=== PATIENT | female | born 1985 | race Two or more races ===

== ENCOUNTER → 2016-06-27 | Outpatient (CLI) | payer MEDICAID ==
--- NOTE | 2016-06-28 09:08 | MR ---
MRI Right Knee Without Contrast History: Medial right knee pain. ICD-10 code M25.561. Technique: MRI was performed of the knee using a 1.5 [employer] MRI system. Sagittal, coronal, and axial i maging was obtained with standard imaging sequences. Findings: General: No significant joint effusion. Portillo cyst is seen extending craniocaudal for 3.5 cm. No evid ence for bone contusion or occult fracture. Ligaments and tendons: Anterior cruciate and posterior cruciate ligaments are intact and unremarkable . Medial collateral ligament and pes anserinus are unremarkable. Iliotibial band, fibular collateral ligament, and biceps femoris are unremarkable. Popliteus muscle and tendon are intact. Menisci and cartilage: No evidence for meniscal tear to an articular surface. Mild cartilage signal a bnormality is seen in the medial compartment with mild surface irregularity and minimal thinning in t he central weightbearing portion. Extensor mechanism: Cartilage signal abnormality is seen in the patella. There is mild surface irregu larity and thinning in the medial facet. There is edema in the superolateral aspect of Hoffa fat pad. Quadriceps tendon and patellar tendon are unremarkable. Impression: 1. No evidence for meniscal tear. 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 2. 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 Edema in the superior lateral aspect of Hoffa fat pad that can be seen with excessive lateral pre ssure syndrome.
== END ==
LOC: FIMAGING 12:57
PROVIDERS: ATTEND Physician Assistant
DX: M25.561 Pain in right knee (principal); M22.41 Chondromalacia patellae, right knee; M71.21 Synovial cyst of popliteal space [Baker], right knee

== ENCOUNTER 2017-06-07 05:50 | Observation (INO) | payer MEDICAID ==
--- NOTE | 2017-06-02 17:50 | GHP ---
[f rep st] PREOP HISTORY AND PHYSICAL DATE OF ADMISSION: 06/07/2017 PREOPERATIVE DIAGNOSES: Menometrorrhagia, dysfunctional uterine bleeding, and multiparous, desires p ermanent sterilization. SURGERY TO BE PERFORMED: Total laparoscopic hysterectomy, bilateral salpingectomy. DATE OF SURGERY: 06/07/2017, at 7:15 am. HISTORY OF PRESENT ILLNESS: The patient is a 31-year-old 3, para 3-0-0-3 with a longstanding history of severe heavy and painful menstrual cycles. Currently, her periods are heavy, lasting 10 days. They start and stop with heavy flow. She usually needs to change a tampon and pad every 1 to 1-1/2 hours and has significant dysmenorrhea, making it very difficult for her to go to work or take care of her children. Her cramps are not responsive to Advil, Tylenol, Midol, or other meds. She de nies any midcycle bleeding or postcoital bleeding at this time. She has had an ongoing issue with me nometrorrhagia and dysmenorrhea since the of her 3rd child in 2014. That baby was a secondary to breech. Initially, she had a Mirena IUD placed for contraception, but she had persisten t dysfunctional bleeding with the Mirena and cramps and decided that she wanted that removed. We sta rted on Lo Ovral contraceptive pill. She had ultrasounds which revealed normal anatomy. She continu ed to have pain on different oral contraceptive pills, had breakthrough bleeding, bleeding all of the time, heavy cycles. A pelvic ultrasound in 2014 revealed multiple ovarian cysts and paratubal cysts . In 2014, she underwent a laparoscopy and a left salpingectomy for removal of a hydrosalpinx to att empt to help her pain. The patient initially had relief, but continued to have dysfunctional uterine bleeding and cramps increased. We alternated different oral contraceptive pills, which were unsucce ssful. The patient began discussing surgical management. Initially, because of her young age, she w as reluctant to have endometrial ablation or a hysterectomy; however, this has progressed over the 4 years and is becoming difficult in her life to work and take care of her children. She has 3 ch ildren and has decided that she does not wish to have any more children, and understands that this is a permanent decision. She wants to have definitive therapy with a total laparoscopic hysterectomy. The patient also struggles with PMS and increasing acne as well as bloating during her cycles. She was recently started on spironolactone for hormonal control of acne as well as supplements. The ramo ent has no history of any abnormal Paps. Her last Pap was on April 24, 2017. It was normal, and H PV was negative. She denies history of STDs. PAST OBSTETRICAL HISTORY: In April 2006, she had a viable female, vaginal delivery, 39 weeks. No complications. Baby weighed 6 pounds 4 ounces. April 2013, she had another viable female, 7 glenys nds 9 ounces, vaginal delivery. No complication. In July 2014, she underwent a for br eech for a viable female who weighed 7 pounds 15 ounces. No complications. Those are her only pregn ancies. PAST MEDICAL HISTORY: Significant for depression and acne. No other clinical issues. PAST SURGICAL HISTORY: Oral surgery, x1, and in 2014, laparoscopy, left salpingectomy. ALLERGIES: She has no known drug allergies. CURRENT MEDICATIONS: Include spironolactone 50 mg daily and Dem 150 mg daily. SOCIAL HISTORY: She is not , but she is in a monogamous relationship with the father of her l ast 2 daughters. She denies tobacco, alcohol use, and drug use. Moderate caffeine use. 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 FAMILY HISTORY: Colon cancer in her mother in her 30s. Brother has anemia. Paternal grandmother raygoza s chronic hypertension and diabetes. REVIEW OF SYSTEMS: Negative except for the pertinent SUPERVISOR DYER symptoms as above. SUBJECTIVE: VITAL SIGNS: Today, blood pressure is 94/60. Weight is 144 pounds. GENERAL: She is a well-developed, well-nourished female, in no acute distress. LUNGS: Clear to auscultation bilaterally. HEART: Regular rate and rhythm. No murmur. ABDOMEN: Soft, nontender, nondistended. Normal bowel sounds. PELVIC: Normal external genitalia. Normal parous cervix. Uterus is antever farhad, anteflexed, mobile, nontender. No adnexal masses. Most recent pelvic ultrasound was on April 24, had a normal-size uterus, mild fluid in the cavity. No masses in the endometrium, no fibroids visualized, and ovaries were normal. ASSESSMENT AND PLAN: A 31-year-old, 3, para 3-0-0-3 with a longstanding history of menometro rrhagia, significant dysmenorrhea, resistant to multiple attempts at medical management, desires a to yumiko laparoscopic hysterectomy and bilateral salpingectomy. She was consented for the procedure today . She understands the risks and benefits. The risks including bleeding; infection; damage to organs , ovaries, bowel, bladder, nerves, blood vessels, ureters; need for open procedure; and need for chastity tional procedures. She understood these risks and benefits and agreed to proceed, and she understand s that this is permanent sterilization. /[id number]/MODL
[2017-06-07] MEDS ORDERED: ceFAZolin 2 GM/SWFI 2 GM/20 ML SYR IVP ONE (05:59)
[2017-06-07] MEDS ORDERED: LR 1,000 ML IV ONE (06:00)
[2017-06-07] MEDS ORDERED: LIDOCAINE 1% 2 ML INJ ID PRN (06:00)
[2017-06-07] MEDS ORDERED: MIDAZOLAM 2 MG/2 ML VIAL IVP ONE (07:03)
--- NOTE | 2017-06-07 07:03 | PDANEPAE ---
ANE History of Present Illness jade/bso ANE Past Medical History - Cardiovascular History Hx Hypertension: No Hx Arrhythmias: No Hx Chest Pain: No Hx Coronary Artery / Peripheral Vascular Disease: No Hx CHF / Valvular Disease: No Hx Palpitations: No - Pulmonary History Hx COPD: No Hx Asthma/Reactive Airway Disease: No Hx Recent Upper Respiratory Infection: No Hx Oxygen in Use at Home: No Hx Sleep Apnea: No Sleep Apnea Screening Result - Last Documented: Negative - Neurologic History Hx Cerebrovascular Accident: No Hx Seizures: No Hx Dementia: No - Endocrine History Hx Diabetes: No - Renal History Hx Renal Disorders: No - Liver History Hx Hepatic Disorders: No - Neurological & Psychiatric Hx Hx Neurological and Psychiatric Disorders: No - Cancer History Hx Cancer: No - Congenital Disorder History Hx Congenital Disorders: No - GI History Hx Gastrointestinal Disorders: No - Other Health History Other Health History: NEG - Chronic Pain History Chronic Pain: No - Surgical History Prior Surgeries: C SECTION. FALLOPIAN TUBE L ANE Review of Systems Review of Systems: - Exercise capacity METS (RN): 4 METS ANE Patient History - Allergies Allergies/Adverse Reactions: No Known Allergies Allergy (Verified 12/10/15 21:50) - Home Medications Home Medications: Herbals/Supplements -Info Only 05/24/17 [Last Taken 05/31/17] Spironolactone 05/24/17 [Last Taken 06/06/17 06:30] - NPO status NPO Since - Liquids (Date): 06/06/17 NPO Since - Liquids (Time): 21:00 NPO Since - Solids (Date): 06/06/17 NPO Since - Solids (Time): 19:00 - Anes Hx Anes Hx: no prior problems - Smoking Hx Smoking Status: Never smoked - Family Anes Hx Family Hx Anesthesia Complications: NEG ANE Labs/Vital Signs - Vital Signs Blood Pressure: 101/67 Heart Rate: 78 Respiratory Rate: 16 O2 Sat (%): 95 Height: 165.1 cm Weight: 64.864 kg ANE Physical Exam - Airway Mallampati Score: Class 2 Mouth exam: normal dental/mouth exam - Pulmonary Pulmonary: no respiratory distress - Cardiovascular Cardiovascular: regular rate and rhythym - ASA Status ASA Status: I ANE Anesthesia Plan Anesthesia Plan: general endotracheal anesthesia
[2017-06-07] MEDS ORDERED: BUPIVACAINE 0.5% 30 ML SDV ONE (07:05)
[2017-06-07] MEDS ORDERED: LIDOCAINE 2% 5 ML SDV ONE (07:11)
[2017-06-07] MEDS ORDERED: ONDANSETRON 4 MG/2 ML VIAL ONE (07:11)
[2017-06-07] MEDS ORDERED: ROCURONIUM 50 MG/5 ML VIAL ONE (07:11)
[2017-06-07] MEDS ORDERED: KETOROLAC 30 MG/1 ML SDV ONE (07:11)
[2017-06-07] MEDS ORDERED: DEXAMETHASONE 4 MG/ML VIAL ONE (07:11)
[2017-06-07] MEDS ORDERED: fentaNYL 100 MCG/2 ML INJ ONE ×2 (07:11→10:15)
[2017-06-07] MEDS ORDERED: PROPOFOL 200 MG/20 ML VIAL ONE (07:12)
--- NOTE | 2017-06-07 07:19 | PDHPUP ---
History & Physical Update H&P update statement: This history and physical update is based on an assessment of the patient which was completed after admission or registration (within 24 hours), but prior to the surgery/procedure.
[2017-06-07] MEDS ORDERED: NALOXONE HCL 0.4 MG/ML INJ IVP PRN ×2 (08:34→09:35)
[2017-06-07] MEDS ORDERED: PROMETHAZINE HCL 25 MG/ML INJ IVP PRN ×2 (08:34→17:39)
[2017-06-07] MEDS ORDERED: LR 500 ML IV PRN (08:34)
[2017-06-07] MEDS ORDERED: ALBUTEROL 3 ML DEYVIAL IH PRN (08:34)
[2017-06-07] MEDS ORDERED: ONDANSETRON 4 MG/2 ML VIAL IVP PRN ×2 (08:34→09:32)
[2017-06-07] MEDS ORDERED: HYDROmorphONE/DILAUDID 1 MG/ML INJ IVP PRN (08:34)
[2017-06-07] MEDS ORDERED: SUGAMMADEX SODIUM 200 MG/2 ML VIAL IVP ONE (09:07)
[2017-06-07] MEDS ORDERED: ONDANSETRON DISINTEGRATING 4 MG TAB PO PRN (09:32)
--- NOTE | 2017-06-07 09:33 | POSTANESTH ---
Post Anesthetic Evaluation Cardiovascular Status: Normal, Stable Respiratory Status: Normal, Stable Level of Consciousness/Mental Status: Can Participate in Eval Pain Control: Adequate, Prn Tx Ordered Nausea/Vomiting Control: Adequate, Prn Tx Ordered Complications Possibly Related to Anesthesia: None Noted
[2017-06-07] MEDS ORDERED: LACTULOSE 20 GM/30 ML UDCUP PO PRN (09:34)
[2017-06-07] MEDS ORDERED: BISACODYL 10 MG SUPP PR PRN (09:34)
[2017-06-07] MEDS ORDERED: POLYETHYLENE GLYCOL 3350 17 GM PKT PO PRN (09:34)
[2017-06-07] MEDS ORDERED: MAGNESIUM HYDROXIDE 30 ML UDCUP PO PRN (09:34)
[2017-06-07] MEDS ORDERED: HYDROmorphONE/DILAUDID 6 MG/30 ML PCA IV PRN (09:35)
--- NOTE | 2017-06-07 09:37 | POSTOPPROG ---
Post Op Note Date of Operation: 06/07/17 Surgeon: Sharon Quintero Excavator Operator: Dr. Soniya Oconnor Anesthesiologist: Dr. Simone Rocha Anesthesia: GET(General Endotracheal) Pre-op Diagnosis: Menomenorrhagia, dysmenorrhea Post-op Diagnosis: same Procedure: TLH B salpingectomy Findings: normal appearing uterus, tubes and ovaries Inf/Abcess present in the surg proc area at time of surgery?: No Depth: Organ Space EBL: 50-100 Total fluids administered: 1000 Specimen(s): uterus with cervix, bilateral fallopian tubes
[2017-06-07] MEDS: fentaNYL 100 MCG/2 ML INJ IVP PRN ×2 (10:19→10:30)
[2017-06-07] MEDS: LR 1,000 ML IV SCH ×2 (12:00→20:10)
[2017-06-07] MEDS: KETOROLAC 30 MG/1 ML SDV IVP PRN ×2 (12:51→19:25)
[2017-06-07] MEDS: HYDROCODONE/APAP 5/325 TAB PO PRN (12:52)
--- NOTE | 2017-06-07 12:57 | GPN ---
[f rep st] PROCEDURE NOTE DATE OF PROCEDURE: 06/07/2017 PREOPERATIVE DIAGNOSES: Menometrorrhagia, dysmenorrhea and dysfunctional uterine bleeding. POSTOPERATIVE DIAGNOSES: Menometrorrhagia, dysmenorrhea and dysfunctional uterine bleeding. NAME OF PROCEDURE: Total laparoscopic hysterectomy, bilateral salpingectomy. BEEF BREAKER: Soniya Oconnor DO. ANESTHESIOLOGIST: Simone Rocha MD. ANESTHESIA: General anesthesia. INDICATION FOR PROCEDURE: Aparna is a 31-year-old, 3, para 3-0-0-3 with a longstanding history of severe heavy and painful menstrual cycles. Her periods are heavy lasting over 10 days. They sta rt and stop with heavy flow. She frequently needs to change tampon and pad every 1 to 1-1/2 hours. Has significant dysmenorrhea making it difficult for her to work and take care of her children and le ave the house. She has tried multiple pain medicines for her dysmenorrhea. We have tried multiple h ormonal methods to control her cycles including multiple different oral contraceptive pills and the M britton IUD. This caused her dysfunctional bleeding to worsen. She underwent a laparoscopic left salp ingectomy for removal of a hydrosalpinx in 2014 in the attempt to help her pelvic pain, dysmenorrhea, and it did not help. The patient has decided that she has completed her childbearing, she wants def initive therapy for her menometrorrhagia and dysmenorrhea with a hysterectomy. She was consented for the procedure. She understood the risks and benefits the risks including bleeding, infection, damag e to organs, ovaries, bowel, bladder, nerves, blood vessels, ureters, risk of needing open procedure risk of additional procedures. She understood these risks and benefits agreed to proceed. DESCRIPTION OF PROCEDURE: Patient was taken to the operating room where she was placed under general anesthesia without difficulty. She was prepped and draped in the dorsal lithotomy position and a Fo yolanda catheter was placed in her bladder. An exam under anesthesia revealed a mobile anteverted antefl exed uterus which had no abnormalities palpated. An open-sided speculum was placed in the vagina, an d a single-tooth tenaculum was used to grasp the anterior lip of the cervix. The uterus sounded to 9 cm. The ARTUR uterine manipulator was seated with the large cervical cup and 8 cm uterine sound. Th is was seated at the cervix and engaged appropriately and the uterine manipulation was performed. Th e tenaculum was removed. The balloon was inflated. Attention was then turned to the abdominal porti on of procedure. After injection of Marcaine, a 5 mm skin incision was made in the infraumbilical sk in and a Veress needle was placed directly through that infraumbilical skin. A good drop in pressure was noted upon entry to the abdominal cavity and pneumoperitoneum was created. A 5 mm tro[address] was pl aced under direct visualization through the infraumbilical port without difficulty. The patient was placed in Trendelenburg and after injection of Marcaine and a 5 mm skin incision, a 5 mm atraumatic t rocar was placed into the right lower quadrant and a 10 mm infraumbilical skin incision was placed in the left lower quadrant to allow for visualization. On gross inspection of the uterus, tubes, and o varies were grossly within normal limits. The left tube had previously had the fimbriated end remove d and there were small adhesions from the anterior portion of the uterus to the uterovesical peritone um. The uterus was deviated to the right and the remnant of the left fallopian tube was grasped with a grasper and the LigaSure was used to cauterize and cut along the mesosalpinx along the length of t he mesosalpinx to the cornual region of the uterus. The tube was then transected and removed directl y through the 10 mm port. The round ligament was then cauterized and suture ligated with the LigaSur e. The utero-ovarian ligaments were the same and the broad ligament was then dissected in the anteri or and posterior planes to create the bladder flap. This was carried along the anterior portion of t he uterus to the vesicouterine peritoneum. The adhesions were removed and the plane was created as t he bladder was deviated inferiorly and the plane was developed over the cervical cup of the manipulat or. The uterine vessels were then cauterized and cut and fully identified and hemostasis was obtaine d. The plane was extended throughout the anterior and posterior planes of the cervical cup and allow ed for good visualization. Identical procedure was performed on the right side of the uterus. The r ight fallopian tube was grasped at the fimbriated end and was cauterized and cut along the mesosalpin x. The tube was transected at the cornual region of the uterus and this was removed directly through the 10 mm port. The round ligament was then cauterized and transfixed and the broad ligament was op ened in the anterior-planes, and was connected to the previously dissected plane from the left. The uterine vessels were then identified, cauterized and cut along the cardinal ligaments and at the leve l of the internal os and care was taken to dissect along the uterine cap and hemostasis was assured. When visualization was good throughout the entire plane of the cup the LigaSure was then used to cre ate the colpotomy with the cautery along the cervical cup, was inspected, and dissected circumferenti ally without difficulty. The uterus was then removed through the vagina. The pelvis was copiously i rrigated with warm normal saline and a glove with a Ray-Madi was placed in the vagina to allow the pne umoperitoneum to persist. Small areas of bleeding along the vaginal cuff were cauterized with the Li gaSure and good hemostasis was assured. The vaginal cuff was then closed with the VCare 0-Vicryl bar bed suture from right to left with 2 sutures overlapping to the midline. Hemostasis was assured and the cuff was closed. The glove and Ray-Madi were removed from the vagina. This was copiously irrigat ed and inspection was performed. The ureters were both visualized without difficulty peristalsing no rmally. The appendix was visualized as well as the gallbladder and all of her anatomy was normal and good hemostasis was assured. The 10 mm trocar was then removed and a suture device was used for ope n closure of the fascia on the 10 mm port with 0 Vicryl. The pneumoperitoneum was allowed to escape. All the trocars were removed and the skin was closed with 4-0 Monocryl. The patient tolerated the procedure well. Sponge, lap, needle, and instruments were correct x2. Patient went to the recovery room in good condition. ESTIMATED BLOOD LOSS: 50 cc. URINE OUTPUT: 75 cc. IV FLUIDS: 1000 cc. /[id number]/MODL
--- NOTE | 2017-06-07 17:47 | SOAPPROG ---
SOAP Progress Note Assessment/Plan: Assessment: 31 y/o POD #0 s/p TLH BS doing well. Plan: Phenergan IV now for nausea. Will continue Dilaudid ESTIMATION MANAGER and Toradol for now and gradually advance diet and begin po pain meds. 06/07/17 17:48 Subjective: Pt is feeling some nausea now with the IV ESTIMATION MANAGER. Her pain is better with Dilaudid and Toradol now. We will add Phenergan to control the nausea. Objective: Vital Signs Temp Pulse Resp BP Pulse Ox 36.7 C 95 17 108/68 96 06/07/17 16:00 06/07/17 16:00 06/07/17 16:00 06/07/17 16:00 06/07/17 16:00 06/06/17 06/07/17 06/08/17 05:59 05:59 05:59 Intake Total 1100 Output Total 150 Balance 950 - Pending Discharge Pending Discharge Within 24 Hours: Yes Pending Discharge Date: 06/08/17 Pending Discharge Time: 11:00 Physical Exam - Physical Exam General Appearance: WD/WN, alert, no apparent distress Neck: non-tender, full range of motion, supple Respiratory: chest non-tender, lungs clear, normal breath sounds Cardiac/Chest: regular rate, rhythm Abdomen: normal bowel sounds, other (incisions c/d/i) ICD10 Worksheet Patient Problems: Problems Problem Status Onset Anemia due to acute blood loss Acute Breech presentation delivered Acute delivery delivered Acute
[2017-06-07] MEDS: SENNOSIDES/DOCUSATE SODIUM TAB PO SCH (20:11)
[2017-06-08] MEDS: HYDROCODONE/APAP 5/325 TAB PO PRN ×3 (00:18→11:57)
[2017-06-08] MEDS: KETOROLAC 30 MG/1 ML SDV IVP PRN (01:40)
[2017-06-08 05:01] LABS: HEMOGLOBIN 11.6 g/dL (12.6-16.3)
[2017-06-08] MEDS: SENNOSIDES/DOCUSATE SODIUM TAB PO SCH (07:48)
[2017-06-08] MEDS: IBUPROFEN 600 MG TAB PO SCH ×2 (07:49→12:28)
[2017-06-08 07:55] VITALS: BP 91/60; PULSE 78; RESP 14; O2SAT 97
[2017-06-08 08:01] VITALS: TEMP 97.7
--- NOTE | 2017-06-08 12:00 | SOAPPROG ---
SOAP Progress Note Assessment/Plan: Assessment: 31 y/o POD #1 s/p TLH BS doing well. Plan: D/c home today with Rx Calhan and Ibuprofen. Follow-up @ [facility] 2 weeks. 06/07/17 17:48 06/08/17 11:59 Subjective: Pt is doing well, she is ambulating, voiding and took a shower this am. She is tolerating reg diet and pain is well controlled on po pain meds. Objective: Vital Signs Temp Pulse Resp BP Pulse Ox 36.5 C 78 14 91/60 L 97 06/08/17 07:53 06/08/17 07:53 06/08/17 07:53 06/08/17 07:53 06/08/17 07:53 Laboratory Results 06/08/17 04:30 06/07/17 06/08/17 06/09/17 05:59 05:59 05:59 Intake Total 4275 Output Total 3200 Balance 1075 - Pending Discharge Pending Discharge Within 24 Hours: Yes Pending Discharge Date: 06/09/17 Pending Discharge Time: 11:00 Physical Exam - Physical Exam General Appearance: WD/WN, alert, no apparent distress Neck: non-tender, full range of motion, supple Respiratory: chest non-tender, lungs clear, normal breath sounds Cardiac/Chest: regular rate, rhythm Abdomen: normal bowel sounds, other (incision c/d/i) Extremities: swelling (no), Conchita's sign (neg) ICD10 Worksheet Patient Problems: Problems Problem Status Onset S/P laparoscopic hysterectomy Acute Anemia due to acute blood loss Acute Breech presentation delivered Acute delivery delivered Acute
--- NOTE | 2017-06-08 12:11 | GDS ---
[f rep st] DISCHARGE SUMMARY Patient was in 24 hour observation. Patient admitted on 06/07/2017, discharged on 06/08/2017. She w as immediately status post total laparoscopic hysterectomy, bilateral salpingectomy, which was uncomp licated and procedure went well. Patient was admitted to the floor. She received an IV Dilaudid HEADER BOSS and Toradol. She had a Patricia catheter placed. Patient gradually advanced her diet and rested well overnight with some mild nausea in the morning. Her Patricia was discontinued. Her HEADER BOSS was discontinue d. She was tolerating regular diet and tolerating p.o. pain medications. Patient ambulated, voided without difficulty and took a shower and patient was ready to discharge home. She is discharged home on p.o. [place] and ibuprofen with instructions to follow up with [facility] [place] in 2 weeks. rebekah is to call if there is fever, severe heavy vaginal bleeding, severe nausea, vomiting, or other conc erns. /[id number]/MODL
== END 2017-06-08 12:55 | disposition home or self-care (01) ==
LOC: FSGY 05:50 → F3E 09:32 → FOB 11:28
PROVIDERS: ADMIT Obstetrics & Gynecology; ATTEND Obstetrics & Gynecology
DX: N92.0 Excessive and frequent menstruation with regular cycle (principal); N93.8 Other specified abnormal uterine and vaginal bleeding; N94.6 Dysmenorrhea, unspecified
CPT/HCPCS: 58571; G0378; J0690; J1100; J1170; J1885; J2250; J2405; J2550; J2704; J3010